=== PATIENT | female | born 1960 | race Caucasian/White ===

== ENCOUNTER 2020-12-11 08:14 | Outpatient (REF) | payer BC, SELFPAY | END 2020-12-11 08:15 | disposition home or self-care (01) | LOC: HO.HMGCLDS 08:14 | PROVIDERS: PCP Internal Medicine; Visit Provider Internal Medicine | DX: Z20.822 Contact with and (suspected) exposure to COVID-19 (principal) | CPT/HCPCS: C9803; U0003; U0005 ==

== ENCOUNTER 2023-02-25 09:00 | Inpatient (IN) | payer OTHER, SELFPAY ==
[2023-02-25] VITALS (8 sets, daily range): BP systolic 111–168; BP diastolic 54–78; PULSE 86–126; RESP 13–25; TEMP 36.6–37.7; O2SAT 84–96; BMI 24.9
--- NOTE | ~2023-02-25 | XR_ITS ---
EXAMINATION: XR CHEST CLINICAL INFORMATION: Hypoxia and shortness of breath COMPARISON: None available. TECHNIQUE: 2 views of the chest were obtained. FINDINGS: The cardiac and mediastinal contours are normal. The lungs are well-inflated. The lungs are clear. No pleural effusion or pneumothorax. Mild degenerative changes of the spine. XR/XR chest 2V IMPRESSION: Well-inflated lungs. No evidence for acute disease in the chest.
--- NOTE | ~2023-02-25 | CT_ITS ---
EXAMINATION: CT ANGIOGRAM OF THE CHEST WITH AND WITHOUT CONTRAST (CT PULMONARY ANGIOGRAM FOR PE) CLINICAL INFORMATION: Reason for Exam shortness of breath, hypoxia, positive ddimer COMPARISON: Chest x-ray from earlier the same day TECHNIQUE: Prior to contrast administration, noncontrast localization images were obtained. Subsequently, multidetector volumetric imaging was performed from the thoracic inlet to below the diaphragms following the administration of 65 mL Omnipaque 350 intravenous contrast. No contrast reaction reported Sagittal, coronal, and MIP oblique sagittal reformatted images were obtained on the CT workstation, uploaded to PACS, and reviewed. This CT examination was performed using dose optimization techniques as appropriate, variously including the following: *Automated exposure control *Adjustment of mA and/or kV according to patient size (this includes techniques or standardized protocols for targeted exams where dose is matched to indication/reason for exam; i.e. extremities or head) *Use of iterative reconstruction technique Total exam dose-length product 214 mGy-cm FINDINGS: QUALITY OF STUDY/CONTRAST BOLUS: Satisfactory. PULMONARY ARTERIES: No pulmonary emboli. THORACIC AORTA: No aneurysm. LUNG: Mild emphysema. Scattered areas of bronchial wall thickening and peribronchial nodules in the right lung. Larger peripheral or subpleural areas of atelectasis or small infiltrate in the dependent right lower lobe at the lung base. This probably represents bronchopneumonia. The left lung is clear. PLEURA: No pleural effusion or pneumothorax. MEDIASTINUM: Normal heart size. No pericardial effusion. Small mediastinal and bilateral hilar lymph nodes. No enlarged hilar or mediastinal lymphadenopathy. No evidence of septal bowing or right heart strain. CORONARY ARTERY CALCIFICATION: None visualized on this study. CHEST WALL/AXILLA: No axillary or internal mammary lymphadenopathy. OSSEOUS STRUCTURES: No acute or suspicious osseous abnormality. UPPER ABDOMEN: Unremarkable. No reflux of contrast into the hepatic veins to suggest elevated right heart pressures. CT/CT angio chest PE protocol IMPRESSION: No evidence of pulmonary embolism. Emphysema. Airways disease in the right lung and probable small bronchopneumonia in the right lower lobe VTE: negative
--- NOTE | 2023-02-25 07:00 | CA_ITS ---
Transthoracic Echocardiogram Patient (Last, First, Middle): Paula Hanley, Gender: Female Date of : 1960 Age: 62 Procedure Date: 02/25/2023 Procedure Type: Transthoracic Echocardiogram Location: ER Height: 167.64 cm Weight: 69.85 kg BSA: 1.79 m2 Heart Rate: bpm BP: 125 / 67 mmHg Software Configuration Specialist: TO Referring MD: Jose MAYORGA Symptoms: Wide complex tachycardia on monitor Study Quality: Fair/Contrast ECG Rhythm: Sinus Conclusions: - The left ventricular systolic function is normal. The calculated ejection fraction is 55% by biplane method. - No obvious valvular pathology seen on this study. Findings Procedure Information Contrast agent, definity, is being given per protocol without apparent complications. Left Ventricle Normal left ventricular cavity size. There is normal left ventricular wall thickness. The left ventricular systolic function is normal. The calculated ejection fraction is 55% by biplane method. There is no evidence of regional wall motion abnormalities. Diastolic function is normal for age. Right Ventricle Normal right ventricular cavity size and systolic function. Atria Both atria are normal in size. Aortic Valve There is a normal trileaflet aortic valve. There is no aortic valve stenosis. There is no aortic valve regurgitation. Mitral Valve There is mild anterior mitral leaflet thickening. There is mild mitral annular calcification. There is trace mitral valve regurgitation. There is no mitral valve stenosis. Pulmonic Valve The pulmonic valve is likely normal. Tricuspid Valve There is trace tricuspid valve regurgitation. Tricuspid regurgitation envelope is inadequate for calculation of right ventricular systolic pressure. Great Vessels The asc aorta is normal in size. Small plaque is seen in the sino tubular ridge. Venous The inferior vena cava is normal in size and collapses greater than 50% with inspiration. Pericardium/Pleural There is no evidence of pericardial effusion. Prior Study Comparison No prior study available for comparison. Recommendations, Care & Conclusions No obvious valvular pathology seen on this study. Measurements 2D Linear Measurements IVSd: 0.86 0.6-0.9/0.6-1.0 cm LVIDd: 4.25 3.9-5.3/4.2-5.9 cm LVIDd Index: 2.37 2.4-3.2/2.2-3.1 cm/m2 LVIDs: 2.96 2.0-3.6 cm LVPWd: 0.74 0.7-1.1 cm LA Diam: 2.80 2.7-3.8/3.0-4.0 cm LAIDs Index: 1.56 1.5-2.3 cm/m2 LV Mass: 128.48 67-162/88-224 g LV Mass Index: 71.78 43-95/49-115 g/m2 LVOT Diam: 2.00 3.0+(-)1.3 cm 2D Systolic Function EF 4C: 50.30 >55% EF 2C: 60.30 >55% EF BiP: 55.10 >55% Mitral Valve MV Pk E: 0.79 MV PK A: 0.91 MV Decel Time: 133.00 E/A: 0.90 E'Lateral: 11.20 E'Medial: 7.51 E/E' Med: 10.60 E/E' Lat: 7.10 PHT: 39.00 MVA PHT: 5.64 Decel Sed[place]wick: 5.97 Aortic Valve AoV Pk Kris: 1.55 AoV Mn Kris: 1.00 AoV VTI: 0.26 AoV Pk Grad: 10.00 Aov Mn Grad: 5.00 ARLYN Cont.VTI: 2.44 LVOT LVOT Pk Kris: 1.23 LVOT Mn Kris: 0.76 LVOT VTI: 0.20 LVOT Pk Grad: 6.00 LVOT Mn Grad: 3.00 LVOT Diam: 2.00 LVOT Area: 3.14 Diastolic Function MV Pk E: 0.79 MV Pk A: 0.91 E/A: 0.90 E'Medial: 7.51 E/E' Med: 10.60 E' Laterial: 11.20 E/E' Lat: 7.10 Right Ventricle TAPSE (mm): 19.40 TVS' Kris: 11.20 Tricuspid Valve RA Press: 3.00 Great Vessels Aorta Sinus of Valsalva: 3.11 2.0-3.5 cm Ao Asc: 3.10 2.1-3.4 cm Updated in Other Vendor System with Status of Final Jesús Avila MD electronically signed on 02/26/2023 12:34:28 PM with status of Final
--- NOTE | 2023-02-25 09:17 | ECG_ITS ---
Test Reason : chest pain Blood Pressure : / mmHG Vent. Rate : 119 BPM Atrial Rate : 119 BPM P-R Int : 138 ms QRS Dur : 082 ms QT Int : 306 ms P-R-T Axes : 075 070 067 degrees QTc Int : 430 ms Sinus tachycardia Normal EKG No previous ECGs available Referred By: Quinton Fishman Electronically Signed By:ISACC HOFFMANN
[2023-02-25 09:31] LABS: Basophils Absolute Auto 0.1 X10*3/uL (0.0-0.2); Basophils Percent Auto 0.4 % (0-2); Eosinophils Absolute Auto 0.1 X10*3/uL (0.0-0.4); Eosinophils Percent Auto 0.8 % (0-4); Hematocrit 40.2 % (37.0-47.0); Hemoglobin 13.2 g/dl (12.0-16.0); Imm Gran Abs Auto 0.06 X10*3/uL (0.00-0.03); Imm Gran Pct Auto 0.4 % (0.0-0.4); Lymphocytes Absolute Auto 1.6 X10*3/uL (1.2-4.9); MANUAL DIFF FLAG SCAN; Mean Corpuscular HGB Conc 32.8 g/dl (31.0-35.0); Mean Corpuscular Hemoglobin 29.3 pg (27.0-33.0); Mean Corpuscular Volume 89.1 fL (80.0-98.0); Mean Platelet Volume 8.5 fL (9.4-12.3); Monocytes Absolute Auto 1.8 X10*3/uL (0.1-1.2); Monocytes Percent Auto 11.3 % (2-11); Neutrophils Absolute Auto 11.9 x10*3/uL (2.0-8.3); Neutrophils Percent Auto 77.1 % (45-73); Platelet Count 349 X10*3/uL (160-400); Red Blood Count 4.51 X10*6/uL (4.20-5.50); Red Cell Distribution Width 13.9 % (11.0-16.0); SCAN SMEAR FLAG 1; White Blood Count 15.4 X10*3/uL (4.8-10.8)
[2023-02-25 09:42] LABS: D Dimer High Sensitivity 287 NG/ML
[2023-02-25 09:45] LABS: Anion Gap 14 (12-20); Blood Urea Nitrogen 10 mg/dL (9-16); Calcium 9.5 mg/dL (8.4-10.2); Carbon Dioxide 26 mmol/L (22-29); Chloride 104 mmol/L (96-108); Estimated Glomerular Filt Rate > 60; Glucose Random 122 mg/dL (60-115); Potassium 3.8 mmol/L (3.3-5.1); Sodium 140 mmol/L (135-145)
[2023-02-25 09:57] LABS: Troponin-I High Sensitivity < 2.7 ng/L (<3.5-17.0)
[2023-02-25 09:58] LABS: B Type Natriuretic Peptide 14 pg/mL (<100)
[2023-02-25 10:21] LABS: SLIDE REVIEW VERIFIED
[2023-02-25 10:55] LABS: Influenza A PCR NEGATIVE (Negative); Influenza B PCR NEGATIVE (Negative); Resp Syncy Virus RNA Qual PCR NEGATIVE (Negative); SARS COV2 PCR INHOUSE NEGATIVE (Negative)
[2023-02-25] MEDS: iohexoL 350 MG/ML 100 ML INFUS..BTL 65 ML IV (11:25)
--- NOTE | 2023-02-25 12:59 | ED_ITS ---
HPI - SOB/Dyspnea General Chief Complaint: Dyspnea Stated Complaint: has copd, in pain Time Seen by Provider: 02/25/23 09:13 Source: patient and family Mode of arrival: ambulatory Limitations: no limitations History of Present Illness HPI Narrative: Patient with increasing shortness of breath getting worse significantly over the past couple of days MD elicited complaint: shortness of breath Pertinent past history: COPD Onset (ago): week(s) Related Data Allergies Allergy/AdvReac Type Severity Reaction Status Date / Time No Known Allergies Allergy Verified 02/25/23 09:20 Review of Systems 2 Review of Systems: Yes all other systems are reviewed and are negative Neurologic: Denies Sensory deficit (Neuro) [facility] Social History Social History Advance Directives: No Physical Exam 2 Vital Signs: Vital Signs: Last Vital Signs Temp 98.9 F 02/25/23 10:29 Pulse 112 H 02/25/23 10:29 Resp 16 02/25/23 10:29 BP 138/68 02/25/23 10:29 Pulse Ox 94 02/25/23 10:29 O2 Del Method Nasal Cannula 02/25/23 10:29 O2 Flow Rate 2 02/25/23 10:29 BMI result Body Mass Index 24.9 Const: Other: thin female obviously short of breath Orientation/consciousness: oriented to person and patient oriented x3 L imitations: no limitations HEENT: Head: Yes normal to inspection Ears: external ears normal General nose exam: Normal external nose present Mouth: Normal oral and palatal mucosa present and oropharynx normal Throat: Yes posterior oropharynx normal Eyes: General: appearance normal, both eyes and all related structures Neck: Other: supple Neck: Yes normal visual inspection Chest: Chest palpation & inspection: normal inspection of the chest Resp: Other: no wheezing Auscultation: clear to auscultation bilaterally Cardio: Jugular venous distension: no JVD Rate: regular rate Rhythm: r egular rhythm Heart sounds: S1 normal heart sound present and S2 normal heart sound present GI: Inspection: Yes normal to inspection Palpation (GI): Soft to palpation, nontender and No hepatosplenomegaly present Auscultation: normal bowel sounds : General: Yes no CVA tenderness Back/Spine/Pelvis: Back: no CVA tenderness Skin: General skin exam: no rashes or lesions noted Neuro: General: oriented to person and patient oriented x3 Cranial nerves: Yes CN's II-XII intact bilaterally Motor exam (neuro): 5/5 motor strength present throughout Sensory Exam: No Sensory deficit (Neuro) Extrem: General: Yes normal to inspection Psych: Appearance: grossly normal Course Reevaluation(s) Reevaluation #1: On CT patient with RLL infiltrate and hypoxia. On repeat physical now with RLL rales. While on the monitor patient had a 17 beat wide complex tachycardia. Time: 13:11 Reevaluation #2: I spent 40 minutes of critical care, with interventions, assessments, speaking to patient, consultants, and family. Time: 13:18 Medications Administered Discontinued Medications Generic Name Dose Route Start Last Admin Trade Name Freq PRN Reason Stop Dose Admin Iohexol 65 ml 02/25/23 11:24 02/25/23 11:25 Iohexol 350 Mg/Ml 100 Ml Infus..Btl IV 02/25/23 11:25 65 ml ONCE ONE Administration Medical Decision Making Differential Diagnosis Differential Diagnoses: The differential diagnosis associated with the presentation includes (Pulmonary embolus, COPD exacerbation, pneumonia, covid, flu, rsv were all considered) Admission/Observation Consideration of admission/observation: Escalation of care including admission/observation considered (upon arrival patient was hypoxic and needed admission) Consult Healthcare Provider Management of the patient was discussed with: Hospitalist Lab Data MDM Lab Attestation statement: I reviewed the patient's lab results. (positive ddimer, elevated WBC all considered) 02/25/23 09:25 02/25/23 09:25 Labs: Lab Results 02/25/23 02/25/23 Range/Units 09:25 09:59 WBC 15.4 H (4.8-10.8) X10*3/uL RBC 4.51 (4.20-5.50) X10*6/uL Hgb 13.2 (12.0-16.0) g/dl Hct 40.2 (37.0-47.0) % MCV 89.1 (80.0-98.0) fL MCH 29.3 (27.0-33.0) pg MCHC 32.8 (31.0-35.0) g/dl RDW 13.9 (11.0-16.0) % Plt Count 349 (160-400) X10*3/uL MPV 8.5 L (9.4-12.3) fL Immature Gran % (Auto) 0.4 (0.0-0.4) % Neut % (Auto) 77.1 H (45-73) % Lymph % (Auto) 10.0 L (20-40) % [place] % (Auto) 11.3 H (2-11) % Eos % (Auto) 0.8 (0-4) % Baso % (Auto) 0.4 (0-2) % Lymph # (Auto) 1.6 (1.2-4.9) X10*3/uL [place] # (Auto) 1.8 H (0.1-1.2) X10*3/uL Eos # (Auto) 0.1 (0.0-0.4) X10*3/uL Baso # (Auto) 0.1 (0.0-0.2) X10*3/uL Abs Immat Gran (auto) 0.06 H (0.00-0.03) X10*3/uL Absolute Neuts (auto) 11.9 H (2.0-8.3) x10*3/uL Absolute Nucleated RBC 0.000 (0.0-0.012) X10*3/uL Nucleated RBC % (auto) 0.0 (0.0-0.2) /100WBC Smear Tech's Comments VERIFIED D-Dimer High Sensitivty 287 NG/ML Sodium 140 (135-145) mmol/L Potassium 3.8 (3.3-5.1) mmol/L Chloride 104 (96-108) mmol/L Carbon Dioxide 26 (22-29) mmol/L Anion Gap 14 (12-20) BUN 10 (9-16) mg/dL Creatinine 0.70 (0.5-1.4) mg/dL Estim Creat Clear Calc 79.0 Estimated GFR > 60 Random Glucose 122 H (60-115) mg/dL Calcium 9.5 (8.4-10.2) mg/dL Troponin I High Sens < 2.7 (<3.5-17.0) ng/L B-Natriuretic Peptide 14 (<100) pg/mL Influenza Type A (PCR) NEGATIVE (Negative) Influenza Type B (PCR) NEGATIVE (Negative) RSV RNA Qual (PCR) NEGATIVE (Negative) SARS-CoV-2 RNA (RT-PCR) NEGATIVE (Negative) Independent Interpretation I performed an independent interpretation of an: EKG (sinus tachycardia 120, no st or twave changes), Plain X-Ray (no infiltrate) and CT Scan (right lower lobe infiltrate) Radiology Impression Discussion of test interpretation with radiology: I have reviewed the radiologist's reading. Independent Historian Clinical information obtained from an independent historian. History obtained from or confirmed by: Spouse Chronic Conditions Patient?s care impacted by: Other (copd) Discharge Plan Discharge Clinical Impression: Community acquired pneumonia, COPD (chronic obstructive pulmonary disease) Patient Disposition: Admitted As Inpatient
[2023-02-25] MEDS: cefTRIAXone sodium 1 GM in 0.9 % Sodium Chloride 50 ML IV (13:32)
--- NOTE | 2023-02-25 13:32 | PM.IMHP ---
History of Present Illness Date of Service: 02/25/23 Attending physician on admission: Bhavesh Vásquez Chief Complaint: SOB Pt is a 62-year-old female with a PMH significant for?COPD not on home O2, anxiety/depression insomnia, and hx of uterine cancer s/p hysterectomy who presents to the ED with?fatigue, shortness of breath, and productive cough x4 weeks. Patient states that symptoms began approximately 1 month ago became significantly worse the past couple days. Patient has had increasing shortness of breath and difficulty breathing with cough occasionally productive of green-colored sputum. Also has experienced chest tightness associated with cough and breathing. Presents today due to worsening symptoms: says she's been pushing and pushing and I just can't push any more . She is a former smoker who quit 45 years ago, drinks socially, and denies any illicit substance use. Denies any significant cardiac history, and follows up regularly with her PCP. In the ED pt had elevated temperature up to 99.9, tachycardia up to 126, tachypnea up to 24, hypertensive up to 168/78, and satting at 84% on RA. Labs were significant for leukocytosis 15.4 and D-dimer mildly elevated at 287, otherwise largely unremarkable. Stable H&H. Electrolytes WNL. Creatinine WNL. Troponin negative. BNP WNL 14. Tested negative for influenza type a and B, COVID, and RSV. CXR showed no evidence for acute disease in the chest. CTA found no evidence for pulmonary embolism, but did show emphysema and airways disease and right lung and probable small bronchopneumonia in the right lower lobe. EKG demonstrated sinus tachycardia of 119 without evidence of significant ST elevations or depressions. Patient did arrive with rhythm strip from EMS of polymorphic wide complex tachycardia of 17 beats. Pt was treated with ceftriaxone and azithromycin. Pt will be admitted to the hospital for treatment further evaluation of acute hypoxic respiratory failure in the setting of community-acquired pneumonia. Review of Systems Review of Systems: SOB, difficulty breathing Fatigue Productive cough Chest tightness Denies chest pain/pressure No headache Denies fever, chills, nausea, vomiting No abdominal pain [facility] Medical History (Updated 02/25/23 @ 14:46 by MUKESH Cheng) Anxiety and depression Uterine cancer Surgical History (Updated 02/25/23 @ 14:43 by MUKESH Cheng) Status post hysterectomy Social History Advance Directives: No Meds Allergies Allergy/AdvReac Type Severity Reaction Status Date / Time No Known Allergies Allergy Verified 02/25/23 09:20 Active Medications: Current Medications Azithromycin 500 mg/ Sodium (Chloride) 250 mls @ 125 mls/hr IV ONCE ONE Stop: 02/25/23 14:55 Home Medications Medication Instructions Recorded Confirmed Last Taken Type duloxetine 60 mg capsule,delayed 60 mg PO DAILY 02/25/23 02/25/23 Unknown History release tiotropium 2.5 mcg-olodaterol 2.5 2 puff inhalation DAILY 02/25/23 02/25/23 Unknown History mcg/actuation mist for inhalation (Stiolto Respimat) trazodone 50 mg tablet 100 - 150 mg PO BEDTIME 02/25/23 02/25/23 Unknown History Physical Exam Vital Signs and Narrative: Vital Signs: Last Vital Signs Temp 98.9 F 02/25/23 10:29 Pulse 112 H 02/25/23 10:29 Resp 16 02/25/23 10:29 BP 138/68 02/25/23 10:29 Pulse Ox 94 02/25/23 10:29 O2 Del Method Nasal Cannula 02/25/23 10:29 O2 Flow Rate 2 02/25/23 10:29 BMI result Body Mass Index 24.9 Constitutional: Alert, in no acute distress. Mental Status: Oriented to person, place and time. Eyes: Pupils are equal, round, and reactive to light. Ear, Nose, and Throat: Oropharynx clear, mucous membranes moist. Ears and nose without deformities. Trachea midline. Respiratory: Mild coarse breath sounds bilaterally. Capable of speaking in complete sentences. Cardiovascular: S1, S2, tachy. No murmurs, rubs, or gallops. Gastrointestinal: Abdomen soft, non-tender, non-distended. Normal bowel sounds. Neurologic: Cranial nerves II-XII are grossly intact bilaterally. No focal neurological deficits. Moves all extremities spontaneously. Skin: Warm, dry. Musculoskeletal: No cyanosis or clubbing. Extremities: No edema. Psychiatric: Normal mood and affect. Results Labs 02/25/23 09:25 02/25/23 09:25 Labs: Laboratory Results - last 24 hr 02/25/23 02/25/23 09:25 09:59 MCV 89.1 MCH 29.3 MCHC 32.8 RDW 13.9 Plt Count 349 MPV 8.5 L Immature Gran % (Auto) 0.4 Neut % (Auto) 77.1 H Lymph % (Auto) 10.0 L [place] % (Auto) 11.3 H Eos % (Auto) 0.8 Baso % (Auto) 0.4 Lymph # (Auto) 1.6 [place] # (Auto) 1.8 H Eos # (Auto) 0.1 Baso # (Auto) 0.1 Abs Immat Gran (auto) 0.06 H Absolute Neuts (auto) 11.9 H Absolute Nucleated RBC 0.000 Nucleated RBC % (auto) 0.0 Smear Tech's Comments VERIFIED D-Dimer High Sensitivty 287 Anion Gap 14 Estim Creat Clear Calc 79.0 Estimated GFR > 60 Random Glucose 122 H Calcium 9.5 B-Natriuretic Peptide 14 Influenza Type A (PCR) NEGATIVE Influenza Type B (PCR) NEGATIVE RSV RNA Qual (PCR) NEGATIVE SARS-CoV-2 RNA (RT-PCR) NEGATIVE Imaging Radiologist's Impressions: Impressions Chest X-Ray 02/25/23 09:40 IMPRESSION: Well-inflated lungs. No evidence for acute disease in the chest. Chest CTA 02/25/23 11:26 IMPRESSION: No evidence of pulmonary embolism. Emphysema. Airways disease in the right lung and probable small bronchopneumonia in the right lower lobe VTE: negative Assessment and Plan (1) Community acquired pneumonia: Status: Acute (2) Acute hypoxic respiratory failure: Status: Acute Plan Pt is a 62-year-old female with a PMH significant for?COPD not on home O2, anxiety/depression insomnia, and hx of uterine cancer s/p hysterectomy who presents to the ED with?fatigue, shortness of breath, and productive cough x4 weeks. Pt will be admitted to the hospital for treatment further evaluation of acute hypoxic respiratory failure in the setting of community-acquired pneumonia. Acute hypoxic respiratory failure in the setting of pneumonia Patient satting as low as 84% on RA, not on home O2 CTA with evidence of bronchopneumonia in right lower lobe Patient meets sepsis criteria: Tachycardia, tachypnea, leukocytosis Will treat with ceftriaxone and azithromycin, started 02/25/2023 Will give IVF Will check lactic acid Continue home inhaler Will give DuoNebs Titrate supplemental O2>92, wean as tolerated Wide complex tachycardia While in ED monitor picked up polymorphic wide complex tachycardia of 17 beats Unclear etiology: Patient denies any cardiovascular history Patient asymptomatic, troponin negative Will check magnesium Will get echocardiogram Monitor on telemetry Anxiety and depression Continue home meds Full Code Attending:?Dr. Vásquez DVT Prophylaxis: Lovenox Pt will require a hospitalization of at least two nights for treatment of?acute hypoxic respiratory failure in the setting of pneumonia. Patient be treated with supplemental oxygen, IV antibiotics, and close monitoring. Quality Stroke Does the patient have a stroke diagnosis?: No VTE Prior VTE?: No VTE Risk Level:: Medical - moderate - high VTE Device Contraindication: Treatment Not Indicated VTE Drug Contraindication: N/A - Med Ordered
[2023-02-25] MEDS: Azithromycin 500 MG in 0.9 % Sodium Chloride 250 ML 125 MG IV (13:58)
--- NOTE | 2023-02-25 14:00 | PHA.MEDREC ---
Pharmacy Consult ? Medication Reconciliation Pharmacy has completed the medication reconciliation. Patient has medication with her. Britany Aparicio, Catracho[facility]
[2023-02-25] MEDS: Enoxaparin Sodium 40 MG/0.4 ML SYRINGE SUBCUT (14:42)
[2023-02-25] MEDS: Potassium Chloride Packet 20 MEQ PACKET PO (14:42)
[2023-02-25 14:43] LABS: Magnesium 1.9 mg/dL (1.6-2.6)
[2023-02-25] MEDS: 0.9 % Sodium Chloride 1,000 ML 999 ML IV (14:43)
[2023-02-25] MEDS: 0.9 % Sodium Chloride Flush 3 ML SYRINGE IVFLUSH ×2 (14:43→23:28)
[2023-02-25] MEDS: Acetaminophen 325 MG TABLET 650 MG PO (15:10)
--- NOTE | 2023-02-25 15:11 | PC.NURSE ---
PT resting in bed, respirations even and unlabored , in no apparent distress. Medicated with 650mg of tylenol for headache 06/28. and Ultrasound @ bedside. Pending admission.
[2023-02-25 15:29] LABS: Lactic Acid 1.4 mmol/L (0.5-2.0)
--- NOTE | 2023-02-25 19:00 | PC.NURSE ---
This keno writer / runner assumed care of this Pt at 1900. Pt A&Ox3, denies any pain. Pt reports cough and SOB with exertion. Pt on 2 L via NC, SpO2 96%, RR 22, lung sounds slightly diminished. Pt ambulated to BR independently with steady gait.
[2023-02-25] MEDS: Albuterol/Iprat 2.5/0.5MG 3 ML AMPUL.NEB INHALE (19:26)
[2023-02-25] MEDS: traZODone HCL 50 MG TABLET 100 MG PO (20:39)
[2023-02-26] VITALS (16 sets, daily range): BP systolic 116–140; BP diastolic 57–70; PULSE 86–122; RESP 17–22; TEMP 36.1–37.1; O2SAT 89–98; BMI 24.2
--- NOTE | 2023-02-26 | ECG_ITS ---
Test Reason : CHEST PAIN Blood Pressure : / mmHG Vent. Rate : 121 BPM Atrial Rate : 121 BPM P-R Int : 116 ms QRS Dur : 094 ms QT Int : 316 ms P-R-T Axes : 063 057 039 degrees QTc Int : 448 ms Sinus tachycardia Otherwise normal ECG No previous ECGs available Referred By: Arabella Marx Electronically Signed By:ISACC HOFFMANN
[2023-02-26] MEDS: Benzonatate 100 MG CAPSULE PO (01:24)
[2023-02-26] MEDS: Acetaminophen 325 MG TABLET 650 MG PO ×3 (01:24→20:22)
--- NOTE | 2023-02-26 03:00 | PC.NURSE ---
Pt appears to be sleeping, SpO2 88% on RA, Pt awakens with verbal stimuli, placed back on 2 L via NC.
[2023-02-26 06:32] LABS: Hemoglobin 11.5 g/dl (12.0-16.0); Mean Corpuscular HGB Conc 31.9 g/dl (31.0-35.0); Mean Corpuscular Hemoglobin 29.3 pg (27.0-33.0); Mean Corpuscular Volume 91.6 fL (80.0-98.0); Mean Platelet Volume 8.9 fL (9.4-12.3); Platelet Count 322 X10*3/uL (160-400); Red Blood Count 3.93 X10*6/uL (4.20-5.50); Red Cell Distribution Width 13.7 % (11.0-16.0); White Blood Count 10.2 X10*3/uL (4.8-10.8)
[2023-02-26 06:42] LABS: Anion Gap 12 (12-20); Blood Urea Nitrogen 9 mg/dL (9-16); Carbon Dioxide 26 mmol/L (22-29); Chloride 108 mmol/L (96-108); Creatinine Clr Calc Pharmacy 95.3; Estimated Glomerular Filt Rate > 60; Glucose Random 96 mg/dL (60-115); Potassium 4.2 mmol/L (3.3-5.1); Sodium 142 mmol/L (135-145)
[2023-02-26] MEDS: 0.9 % Sodium Chloride Flush 3 ML SYRINGE IVFLUSH ×5 (08:04→20:22)
[2023-02-26 08:10] LABS: Magnesium 2.1 mg/dL (1.6-2.6)
[2023-02-26] MEDS: Doxycycline Hyclate 100 MG in 0.9 % Sodium Chloride 250 ML 166.67 MG IV ×2 (08:18→20:22)
[2023-02-26] MEDS: methylPREDNISolone Sod Succ 40 MG/ML VIAL IVPUSH (08:18)
[2023-02-26] MEDS: Albuterol/Iprat 2.5/0.5MG 3 ML AMPUL.NEB INHALE ×3 (08:27→15:19)
[2023-02-26 08:30] LABS: Procalcitonin 0.08 ng/mL
--- NOTE | 2023-02-26 08:32 | PC.NURSE ---
patient resting quietly in bed, patient states she has a headache, utilized prn tylenol per MAY. respirations equal and unlabored, skin pwd.
--- NOTE | 2023-02-26 09:30 | PC.NURSE ---
this RN resumed care of pt at this time. vss and up to date aside from being slightly tachypneic. nsr on the personnel monitor. pt verbalizing 8/10 headache despite medication administration. pt verbalizes no effectiveness. pt c/o pain at IV insertion site placed by previous RN - no swelling/redness/infiltration etc. noted. new 20gIV placed in the right AC - abx continues to administer at this time. wheezing noted throughout upon auscultation. pt verbalizes no sob/wob at this time. respirations even and unlabored. bedside. call quintanilla placed within reach.
[2023-02-26] MEDS: DULoxetine HCl 60 MG CAPSULE.DR PO (09:54)
--- NOTE | 2023-02-26 09:55 | PC.NURSE ---
pt speaking w/ admitting provider at this time. medication administered per provider order. bedside. call quintanilla placed within reach.
--- NOTE | 2023-02-26 11:58 | PM.CNCAR ---
History of Present Illness History of Present Illness Date of Service: 02/26/23 Chief complaint: Community acquired pneumonia; acute hypoxic Narrative: This is a cardiology consultation regarding an episode of NSVT seen on telemetry. Patient has COPD on home oxygen, and basically she is here for increasing shortness of breath. Admission diagnosis hypoxic respiratory failure in setting of pneumonia. From the cardiac standpoint, telemetry in the ER had shown wide complex tachycardia for about 17 beats and hence we have been asked to see her. Patient herself denies any history of coronary disease myocardial infarction or cardiomyopathy or in fact any other cardiac issues. She does get short of breath with activity which she relates to COPD. Whenever she is feeling short of breath he also feels chest pain and that could be pleuritic pain. Currently, she is not having any cardiac symptoms. Review of Systems Review of Systems: Yes all other systems are reviewed and are negative Constitutional: Constitutional: Reports as per HPI and Reports no additional constitutional complaints Eyes: Eyes: Reports as per HPI and Denies no additional eye complaints ENT: Denies system reviewed and no additional complaints, except as documented and Reports as per HPI Cardiovascular: Cardiovascular: Reports as per HPI, Reports no additional cardiovascular complaints, Denies acrocyanosis, Denies cool extremities, Denies chest pain, Denies leg edema, Denies lightheadedness, Denies palpitations and Reports dyspnea Respiratory: Respiratory: Reports as per HPI, Denies no additional respiratory complaints and Reports dyspnea Gastrointestinal: Gastrointestinal: Reports as per HPI and Denies no additional gastrointestinal complaints Genitourinary: Genitourinary: Reports as per HPI Musculoskeletal: Musculoskeletal: Reports no additional musculoskeletal complaints and Reports as per HPI Integumentary/Breasts: Skin/Breast: Reports system reviewed and no additional complaints, except as docu Neurologic: Reports system reviewed and no additional complaints, except as documented and Reports as per HPI Psychiatric: Psychiatric: Reports no additional psychiatric complaints and Reports as per HPI Endocrine: Endocrine: Reports no additional endocrine complaints, Reports as per HPI and Denies palpitations Hematologic/Lymphatic: Hematologic/Lymphatic: Reports no additional hematologic/lymphatic complaints and Reports as per HPI Allergic/Immunologic: Allergic/Immunologic: Reports no additional allergic/immunologic complaints and Reports as per HPI [facility] Past Medical History Medical History (Updated 02/26/23 @ 12:06 by Jesús Avila MD) Anxiety and depression Uterine cancer Family History Pertinent family history: No pertinent family history Surgical History Surgical History (Updated 02/25/23 @ 14:43 by MUKESH Cheng) Status post hysterectomy Social History Social History (Updated 02/26/23 @ 12:05 by Jesús Avila MD) Patient Tobacco Use Status: Former Tobacco user Meds Allergies Allergy/AdvReac Type Severity Reaction Status Date / Time No Known Allergies Allergy Verified 02/25/23 09:20 Active Medications: Current Medications Acetaminophen (Acetaminophen 325 Mg Tablet) 650 mg PO Q6H PRN PRN Reason: Pain, Mild (Pain Scale 1-3) Last Admin: 02/26/23 08:02 Dose: 650 mg Albuterol/Ipratropium (Albuterol/Iprat 2.5/0.5mg 3 Ml Ampul.Neb) 3 ml INHALE RQ4H WHILE AWAKE [facility] Last Admin: 02/26/23 11:42 Dose: 3 ml Benzonatate (Benzonatate 100 Mg Capsule) 100 mg PO TID PRN PRN Reason: Cough Last Admin: 02/26/23 01:24 Dose: 100 mg Docusate Sodium (Docusate Sodium 100 Mg Capsule) 100 mg PO DAILY PRN PRN Reason: Constipation Duloxetine HCl (Duloxetine Hcl 60 Mg Capsule.Dr) 60 mg PO DAILY [facility] Last Admin: 02/26/23 09:54 Dose: 60 mg Enoxaparin Sodium (Enoxaparin Sodium 40 Mg/0.4 Ml Syringe) 40 mg SUBCUT Q24H [facility] Last Admin: 02/25/23 14:42 Dose: 40 mg Ceftriaxone Sodium 1 gm/ (Sodium Chloride) 50 mls @ 100 mls/hr IV Q24H [facility] Doxycycline Hyclate 100 mg/ (Sodium Chloride) 250 mls @ 166.67 mls/hr IV Q12H [facility] Last Infusion: 02/26/23 09:48 Dose: Infused Methylprednisolone Sodium Succinate (Methylprednisolone Sod Succ 40 Mg/Ml Vial) 40 mg IVPUSH Q24H [facility] Last Admin: 02/26/23 08:18 Dose: 40 mg Pt Own (Tiotropium- Olodaterol [Stiolto Respimat] 2.5-2.5 Mcg/Actuation M 2 puff INHALE RDAILY [facility] Last Admin: 02/26/23 09:48 Dose: Not Given Sodium Chloride (0.9 % Sodium Chloride Flush 3 Ml Syringe) 3 ml IVFLUSH QSTXFT [facility] Last Admin: 02/26/23 08:04 Dose: 3 ml Sodium Chloride (0.9 % Sodium Chloride Flush 3 Ml Syringe) 3 ml IVFLUSH [facility] Last Admin: 02/26/23 08:25 Dose: 3 ml Trazodone HCl (Trazodone Hcl 50 Mg Tablet) 100 mg PO BEDTIME [facility] Last Admin: 02/25/23 20:39 Dose: 100 mg Home Medications Medication Instructions Recorded Confirmed Last Taken Type duloxetine 60 mg capsule,delayed 60 mg PO DAILY 02/25/23 02/25/23 Unknown History release tiotropium 2.5 mcg-olodaterol 2.5 2 puff inhalation DAILY 02/25/23 02/25/23 Unknown History mcg/actuation mist for inhalation (Stiolto Respimat) trazodone 50 mg tablet 100 - 150 mg PO BEDTIME 02/25/23 02/25/23 Unknown History Physical Exam Vital Signs: Vital Signs: Last Vital Signs Temp 98.7 F 02/26/23 07:58 Pulse 96 02/26/23 11:43 Resp 17 02/26/23 11:43 BP 139/68 02/26/23 09:20 Pulse Ox 95 02/26/23 09:20 O2 Del Method Nasal Cannula 02/26/23 09:20 O2 Flow Rate 1.5 02/26/23 09:20 BMI result Body Mass Index 24.9 Const: General: comfortable and no acute distress Orientation/consciousness: patient oriented x3 HEENT: Other: Unremarkable Head: Yes normal to inspection Neck: Neck: Yes normal visual inspection Chest: Chest palpation & inspection: normal inspection of the chest Resp: Auscultation: clear to auscultation bilaterally Cardio: Palpation: normal PMI Heart sounds: S1 normal heart sound present, S2 normal heart sound present, no gallops, no murmurs and no rubs GI: Palpation (GI): Soft to palpation Back/Spine/Pelvis: Other: unremarkable Skin: General skin exam: no rashes or lesions noted Neuro: General: patient oriented x3 Extrem: General: Yes normal to inspection Psych: Mental Status: mental status grossly normal Objective Labs and Meds 02/26/23 06:08 02/26/23 06:08 Lab results: Laboratory Results - last 24 hr 12/11/1002/25/23 02/26/23 09:25 Unknown 06:08 WBC 10.2 RBC 3.93 L Hgb 11.5 L Hct 36.0 L MCV 91.6 MCH 29.3 MCHC 31.9 RDW 13.7 Plt Count 322 MPV 8.9 L Absolute Nucleated RBC 0.000 Nucleated RBC % (auto) 0.0 Sodium 142 Potassium 4.2 Chloride 108 Carbon Dioxide 26 Anion Gap 12 BUN 9 Creatinine 0.58 Estim Creat Clear Calc 95.3 Estimated GFR > 60 Random Glucose 96 Lactic Acid 1.4 Calcium 9.0 Magnesium 1.9 2.1 Procalcitonin 0.08 ECG Interpretation: EKG with sinus tachycardia at 119/Min; no significant ST-T changes and otherwise unremarkable. Normal GA and corrected QT. Telemetry episode reviewed. Monomorphic VT foreign 17 beats. Nothing recurrent. Imaging Radiologist's impression: Impressions Chest CTA 02/25/23 11:26 IMPRESSION: No evidence of pulmonary embolism. Emphysema. Airways disease in the right lung and probable small bronchopneumonia in the right lower lobe VTE: negative Assessment and Plan (1) NSVT (nonsustained ventricular tachycardia): Status: Acute (2) Acute hypoxic respiratory failure: Status: Acute (3) COPD (chronic obstructive pulmonary disease): Status: Acute (4) Community acquired pneumonia: Status: Acute Plan Troponins within normal limits. Cardiac BNP is also normal. CTA reported to have no pulmonary embolism. Emphysema. Airway disease and right lung and probable small bronchopneumonia and right lower lobe. No coronary artery calcification noted. Overall, single episode of nonsustained VT, monomorphic. This could be outflow tract related. Generally does not reflect ischemia. No specific management, unless recurrent. Will review echocardiogram that has been completed. Discussed with family member at bedside. Procedures Date of Service Date of Service: 02/26/23
--- NOTE | 2023-02-26 12:08 | PC.NURSE ---
vss and up to date at this time. nsr on the steward dishwasher. pt resting at 89% on 1.5L via NC. bumped pt's oxygen up to 2L via NC at this time - pt now resting between 91%-92%. no sob/wob noted. able to speak in full/clear sentences w/o difficulty. respirations remain even and unlabored. pt awaiting bed assignment at this time. family bedside. call quintanilla placed within reach.
--- NOTE | 2023-02-26 12:11 | P.PNIM_ITS ---
Subjective Subjective Date of Service: 02/26/23 Interval History: dyspnea/cough improving had palpitations during episode of NSVT yesterday at 1pm and has been having them at home as well no fever Review of Systems Review of Systems: Yes all other systems are reviewed and are negative Physical Exam 2 Vital Signs: Vital Signs: Last Vital Signs Temp 98.7 F 02/26/23 07:58 Pulse 96 02/26/23 12:01 Resp 22 H 02/26/23 12:01 BP 125/64 02/26/23 12:01 Pulse Ox 92 02/26/23 12:01 O2 Del Method Nasal Cannula 02/26/23 12:01 O2 Flow Rate 2 02/26/23 12:01 BMI result Body Mass Index 24.9 Gen: in no acute distress HEENT: sclera anicteric, moist mucus membranes Neck: supple Lungs: diminished Heart: regular rate and rhythm, no murmurs Abd: soft, non-tender, non-distended Ext: no edema Skin: warm/well-perfused Neuro: alert and oriented x3, no focal findings Psych: appropriate affect Objective Data Active Medications Acetaminophen (Acetaminophen 325 Mg Tablet) 650 mg PO Q6H PRN PRN Reason: Pain, Mild (Pain Scale 1-3) Last Admin: 02/26/23 08:02 Dose: 650 mg Documented By: JA Albuterol/Ipratropium (Albuterol/Iprat 2.5/0.5mg 3 Ml Ampul.Neb) 3 ml INHALE RQ4H WHILE AWAKE [facility] Last Admin: 02/26/23 11:42 Dose: 3 ml Documented By: BRERobertNE Benzonatate (Benzonatate 100 Mg Capsule) 100 mg PO TID PRN PRN Reason: Cough Last Admin: 02/26/23 01:24 Dose: 100 mg Documented By: JENI Docusate Sodium (Docusate Sodium 100 Mg Capsule) 100 mg PO DAILY PRN PRN Reason: Constipation Duloxetine HCl (Duloxetine Hcl 60 Mg Capsule.) 60 mg PO DAILY [facility] Last Admin: 02/26/23 09:54 Dose: 60 mg Documented By: DEWEY Enoxaparin Sodium (Enoxaparin Sodium 40 Mg/0.4 Ml Syringe) 40 mg SUBCUT Q24H [facility] Last Admin: 02/25/23 14:42 Dose: 40 mg Documented By: JOSE ANGELOPEMagaly Ceftriaxone Sodium 1 gm/ (Sodium Chloride) 50 mls @ 100 mls/hr IV Q24H [facility] Doxycycline Hyclate 100 mg/ (Sodium Chloride) 250 mls @ 166.67 mls/hr IV Q12H [facility] Last Infusion: 02/26/23 09:48 Dose: Infused Documented By: DEWEY Methylprednisolone Sodium Succinate (Methylprednisolone Sod Succ 40 Mg/Ml Vial) 40 mg IVPUSH Q24H [facility] Last Admin: 02/26/23 08:18 Dose: 40 mg Documented By: JA Pt Own (Tiotropium- Olodaterol [Stiolto Respimat] 2.5-2.5 Mcg/Actuation M 2 puff INHALE RDAILY [facility] Last Admin: 02/26/23 09:48 Dose: Not Given Documented By: LUIS ALBERTO Non-Admin Reason: Med Not Available Sodium Chloride (0.9 % Sodium Chloride Flush 3 Ml Syringe) 3 ml IVFLUSH QSHIFT [facility] Last Admin: 02/26/23 08:04 Dose: 3 ml Documented By: JA Sodium Chloride (0.9 % Sodium Chloride Flush 3 Ml Syringe) 3 ml IVFLUSH QSHIFT [facility] Last Admin: 02/26/23 08:25 Dose: 3 ml Documented By: JA Trazodone HCl (Trazodone Hcl 50 Mg Tablet) 100 mg PO BEDTIME [facility] Last Admin: 02/25/23 20:39 Dose: 100 mg Documented By: LUISITO Labs 02/26/23 06:08 02/26/23 06:08 Labs: Laboratory Results - last 24 hr 02/25/23 02/25/23 02/26/23 09:25 Unknown 06:08 MCV 91.6 MCH 29.3 MCHC 31.9 RDW 13.7 Plt Count 322 MPV 8.9 L Absolute Nucleated RBC 0.000 Nucleated RBC % (auto) 0.0 Anion Gap 12 Estim Creat Clear Calc 95.3 Estimated GFR > 60 Random Glucose 96 Lactic Acid 1.4 Calcium 9.0 Magnesium 1.9 2.1 Procalcitonin 0.08 Assessment and Plan (1) NSVT (nonsustained ventricular tachycardia): Status: Acute (2) Acute hypoxic respiratory failure: Status: Acute (3) COPD (chronic obstructive pulmonary disease): Status: Acute Assessment and Plan: d2 62yo F with COPD + mood disorder, hx uterine CA s/p hysterectomy presenting with 4 wk of worsening fatigue, dyspnea + cough, found to be hypoxic with PNA sepsis with acute hypoxic resp failure due to COPD exacerbation due to PNA - start methylprednisolone 02/26/23- - ceftriaxone 02/25-, change azithromycin to doxycycline 02/26- - continue nebs - wean O2 as tolerated NSVT - Cardiology consult, TTE pending mood disorder - continue duloxetine + trazodone VTE ppx - LMWH dispo - eventual return home In my clinical judgment, the patient requires continued inpatient hospitalization for the following reasons: hypoxia, IV ABX, telemetry Total time managing care of this patient today: 35 minutes. Quality Stroke Does the patient have a stroke diagnosis?: No VTE Prior VTE?: No VTE Risk Level:: Medical - moderate - high VTE Device Contraindication: Treatment Not Indicated VTE Drug Contraindication: N/A - Med Ordered
[2023-02-26] MEDS: cefTRIAXone sodium 1 GM in 0.9 % Sodium Chloride 50 ML IV (13:24)
--- NOTE | 2023-02-26 13:24 | PC.NURSE ---
medication administered per provider order.
--- NOTE | 2023-02-26 14:04 | MHC.CM.PN ---
IMM 02/26. Pt lives at home with her and adult son. 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 Returning home is the goal, pts will transport her home. HCP completed with pt, now on file. PCP: Dr. Román Doe
--- NOTE | 2023-02-26 14:08 | MHC.CM.PN ---
Pt lives at home with her and adult son. 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 Returning home is the goal, pts will transport her home. HCP completed with pt, now on file. PCP: Dr. Román Doe
--- NOTE | 2023-02-26 14:56 | PC.NURSE ---
admission worksheet completed - transport notified that pt is ready to be transported upstairs at this time.
[2023-02-26] MEDS: Enoxaparin Sodium 40 MG/0.4 ML SYRINGE SUBCUT (15:04)
--- NOTE | 2023-02-26 15:06 | PC.NURSE ---
medication administered per provider order. pt waiting to be transported upstairs at this time. pt and pt's aware of room number.
--- NOTE | 2023-02-26 15:41 | PC.NURSE ---
pt being transported upstairs at this time.
--- NOTE | 2023-02-26 15:46 | HE.PHANOTE ---
RE PT OWN NAYELY PENDLETON CALLED FROM RESPIRATORY TO SAY THE PT WAS MOVED FROM ED TO 4TH FLOOR. STATES SHE WILL BRING THE INHALER TO THE PT BIN ON 4TH FLOOR.
[2023-02-26] MEDS: Nitroglycerin 0.4 MG TAB.SUBL SUBLINGUAL (17:12)
--- NOTE | 2023-02-26 18:01 | PM.EVENT ---
Event Note Date of Service: 02/26/23 Event Note: c/o 8/10 chest discomfort- pressure-type. Tachycardic in the 120s. Lung sounds diminished but not wheezing. Given NTG 0.4 mg SL with relief of pain, currently 04/30. EKG sinus tachycardia without ischemic changes. Will check Tn-I x2. TTE: Normal left ventricular cavity size. There is normal left ventricular wall thickness. The left ventricular systolic function is normal. The calculated ejection fraction is 55% by biplane method. There is no evidence of regional wall motion abnormalities. Diastolic function is normal for age. Time Spent With Patient Time: Total time managing care of this patient today ____ minutes.
[2023-02-26 18:23] LABS: Troponin-I High Sensitivity < 2.7 ng/L (<3.5-17.0)
[2023-02-26] MEDS: levalbuterol HCL 1.25 MG/3 ML VIAL.NEB INHALE (19:18)
[2023-02-26] MEDS: traZODone HCL 50 MG TABLET 100 MG PO (20:21)
[2023-02-26 21:06] LABS: Troponin-I High Sensitivity < 2.7 ng/L (<3.5-17.0)
[2023-02-27] VITALS (11 sets, daily range): BP systolic 128–144; BP diastolic 60–77; PULSE 91–112; RESP 16–20; TEMP 36.3–36.9; O2SAT 86–98
[2023-02-27 06:58] LABS: Hemoglobin 11.1 g/dl (12.0-16.0); Mean Corpuscular HGB Conc 32.6 g/dl (31.0-35.0); Mean Corpuscular Hemoglobin 29.9 pg (27.0-33.0); Mean Corpuscular Volume 91.6 fL (80.0-98.0); Platelet Count 357 X10*3/uL (160-400); Red Blood Count 3.71 X10*6/uL (4.20-5.50); Red Cell Distribution Width 13.7 % (11.0-16.0); White Blood Count 9.4 X10*3/uL (4.8-10.8)
[2023-02-27] MEDS: Benzonatate 100 MG CAPSULE PO ×2 (07:13→14:19)
[2023-02-27 07:16] LABS: Anion Gap 15 (12-20); Blood Urea Nitrogen 11 mg/dL (9-16); Calcium 9.3 mg/dL (8.4-10.2); Carbon Dioxide 28 mmol/L (22-29); Chloride 105 mmol/L (96-108); Creatinine Clr Calc Pharmacy 92.1; Estimated Glomerular Filt Rate > 60; Glucose Random 94 mg/dL (60-115); Magnesium 2.1 mg/dL (1.6-2.6); Potassium 3.9 mmol/L (3.3-5.1); Sodium 144 mmol/L (135-145)
[2023-02-27] MEDS: DULoxetine HCl 60 MG CAPSULE.DR PO (07:55)
[2023-02-27] MEDS: methylPREDNISolone Sod Succ 40 MG/ML VIAL IVPUSH (07:55)
[2023-02-27] MEDS: 0.9 % Sodium Chloride Flush 3 ML SYRINGE IVFLUSH ×5 (07:56→20:22)
[2023-02-27] MEDS: levalbuterol HCL 1.25 MG/3 ML VIAL.NEB INHALE ×4 (07:59→19:45)
[2023-02-27] MEDS: Doxycycline Hyclate 100 MG in 0.9 % Sodium Chloride 250 ML 166.67 MG IV ×2 (08:03→20:20)
--- NOTE | 2023-02-27 10:10 | HO.PM.IMPN ---
Subjective Subjective Date of Service: 02/27/23 Interval History: chest pain resolved dyspnea improved coughing no fever no recurrence of VT Review of Systems Review of Systems: Yes all other systems are reviewed and are negative Physical Exam Vital Signs: Vital Signs: Last Vital Signs Temp 97.4 F 02/27/23 07:33 Pulse 104 H 02/27/23 08:02 Resp 20 02/27/23 08:02 BP 137/71 02/27/23 07:33 Pulse Ox 94 02/27/23 07:33 O2 Del Method Nasal Cannula 02/27/23 07:33 O2 Flow Rate 2 02/27/23 07:33 BMI result Body Mass Index 24.2 Gen: in no acute distress HEENT: sclera anicteric, moist mucus membranes Neck: supple Lungs: diminished Heart: regular rate and rhythm, no murmurs Abd: soft, non-tender, non-distended Ext: no edema Skin: warm/well-perfused Neuro: alert and oriented x3, no focal findings Psych: appropriate affect Objective Data Active Medications Acetaminophen (Acetaminophen 325 Mg Tablet) 650 mg PO Q6H PRN PRN Reason: Pain, Mild (Pain Scale 1-3) Last Admin: 02/26/23 20:22 Dose: 650 mg Documented By: LAFLAMC Benzonatate (Benzonatate 100 Mg Capsule) 100 mg PO TID PRN PRN Reason: Cough Last Admin: 02/27/23 07:13 Dose: 100 mg Documented By: LUPILLO Docusate Sodium (Docusate Sodium 100 Mg Capsule) 100 mg PO DAILY PRN PRN Reason: Constipation Duloxetine HCl (Duloxetine Hcl 60 Mg Capsule.) 60 mg PO DAILY [facility] Last Admin: 02/27/23 07:55 Dose: 60 mg Documented By: LUPILLO Enoxaparin Sodium (Enoxaparin Sodium 40 Mg/0.4 Ml Syringe) 40 mg SUBCUT Q24H [facility] Last Admin: 02/26/23 15:04 Dose: 40 mg Documented By: DEWEY Ceftriaxone Sodium 1 gm/ (Sodium Chloride) 50 mls @ 100 mls/hr IV Q24H [facility] Last Infusion: 02/26/23 13:56 Dose: Infused Documented By: DEWEY Doxycycline Hyclate 100 mg/ (Sodium Chloride) 250 mls @ 166.67 mls/hr IV Q12H [facility] Last Admin: 02/27/23 08:03 Dose: 166.67 mls/hr Documented By: LUPILLO Levalbuterol HCl (Levalbuterol Hcl 1.25 Mg/3 Ml Vial.Neb) 1.25 mg INHALE Q2H PRN PRN Reason: shortness of breath or wheeze Levalbuterol HCl (Levalbuterol Hcl 1.25 Mg/3 Ml Vial.Neb) 1.25 mg INHALE RQ4H WHILE AWAKE [facility] Last Admin: 02/27/23 07:59 Dose: 1.25 mg Documented By: LUIS ALBERTO Methylprednisolone Sodium Succinate (Methylprednisolone Sod Succ 40 Mg/Ml Vial) 40 mg IVPUSH Q24H [facility] Last Admin: 02/27/23 07:55 Dose: 40 mg Documented By: LUPILLO Pt Own (Tiotropium- Olodaterol [Stiolto Respimat] 2.5-2.5 Mcg/Actuation M 2 puff INHALE RDAILY [facility] Last Admin: 02/27/23 07:59 Dose: 2 puff Documented By: LUIS ALBERTO Sodium Chloride (0.9 % Sodium Chloride Flush 3 Ml Syringe) 3 ml IVFLUSH QSHIFT [facility] Last Admin: 02/27/23 07:56 Dose: 3 ml Documented By: LUPILLO Sodium Chloride (0.9 % Sodium Chloride Flush 3 Ml Syringe) [facility] Last Admin: 02/27/23 07:56 Dose: 3 ml Documented By: LUPILLO Trazodone HCl (Trazodone Hcl 50 Mg Tablet) 100 mg PO BEDTIME [facility] Last Admin: 02/26/23 20:21 Dose: 100 mg Documented By: SONYAC Labs 02/27/23 06:06 02/27/23 06:06 Labs: Laboratory Results - last 24 hr 02/27/23 06:06 MCV 91.6 MCH 29.9 MCHC 32.6 RDW 13.7 Plt Count 357 MPV 9.0 L Absolute Nucleated RBC 0.000 Nucleated RBC % (auto) 0.0 Anion Gap 15 Estim Creat Clear Calc 92.1 Estimated GFR > 60 Random Glucose 94 Calcium 9.3 Magnesium 2.1 Microbiology Microbiology Results: Microbiology 02/25/23 13:31 Blood Culture - Preliminary Blood - Venous No growth after 24 hours. 02/25/23 13:20 Blood Culture - Preliminary Blood - Venous No growth after 24 hours. Assessment and Plan (1) NSVT (nonsustained ventricular tachycardia): Status: Acute (2) Acute hypoxic respiratory failure: Status: Acute (3) COPD (chronic obstructive pulmonary disease): Status: Acute Assessment and Plan: d2 62yo F with COPD + mood disorder, hx uterine CA s/p hysterectomy presenting with 4 wk of worsening fatigue, dyspnea + cough, found to be hypoxic with PNA sepsis with acute hypoxic resp failure due to COPD exacerbation due to PNA - methylprednisolone 02/26/23- - ceftriaxone 02/25-, changed azithromycin to doxycycline 02/26- - continue nebs- changed to levalbuterol due to tachycardia - wean O2 as tolerated chest pain, atypical - Tn-I x2 negative, no ischemic changes. likely related to coughing. monomorphic NSVT - Cardiology consulted, has not recurred, TTE 02/25/23: Normal left ventricular cavity size. There is normal left ventricular wall thickness. The left ventricular systolic function is normal. The calculated ejection fraction is 55% by biplane method. There is no evidence of regional wall motion abnormalities. Diastolic function is normal for age. - consider outpt f/u with Holter mood disorder - continue duloxetine + trazodone VTE ppx - LMWH dispo - eventual return home In my clinical judgment, the patient requires continued inpatient hospitalization for the following reasons: hypoxia, IV ABX, Total time managing care of this patient today: 35 minutes. Quality Stroke Does the patient have a stroke diagnosis?: No VTE Prior VTE?: No VTE Risk Level:: Medical - moderate - high VTE Device Contraindication: Treatment Not Indicated VTE Drug Contraindication: N/A - Med Ordered
[2023-02-27] MEDS: cefTRIAXone sodium 1 GM in 0.9 % Sodium Chloride 50 ML IV (13:45)
[2023-02-27] MEDS: Enoxaparin Sodium 40 MG/0.4 ML SYRINGE SUBCUT (14:19)
--- NOTE | 2023-02-27 15:07 | PC.RT ---
attempted to wean oxygen to RA, SpO2 down to 83%. placed back on 2LNC
[2023-02-27] MEDS: traZODone HCL 50 MG TABLET 100 MG PO (20:20)
[2023-02-28] VITALS (13 sets, daily range): BP systolic 133–161; BP diastolic 64–81; PULSE 88–112; RESP 16–20; TEMP 36.3–37; O2SAT 86–100
[2023-02-28] MEDS: levalbuterol HCL 1.25 MG/3 ML VIAL.NEB INHALE ×4 (07:23→20:46)
[2023-02-28] MEDS: Acetaminophen 325 MG TABLET 650 MG PO (09:16)
[2023-02-28] MEDS: Doxycycline Monohydrate 100 MG CAPSULE PO ×2 (09:16→21:16)
[2023-02-28] MEDS: DULoxetine HCl 60 MG CAPSULE.DR PO (09:16)
[2023-02-28] MEDS: 0.9 % Sodium Chloride Flush 3 ML SYRINGE IVFLUSH ×5 (09:16→23:03)
[2023-02-28] MEDS: methylPREDNISolone Sod Succ 40 MG/ML VIAL IVPUSH (09:17)
--- NOTE | 2023-02-28 10:14 | MHC.CM.PN ---
Per ROUNDS discussion, Patient is not yet medically cleared for dc (4L, O2 and PT eval needed to assist with disposition). CM will follow.
--- NOTE | 2023-02-28 11:11 | HO.PM.IMPN ---
Subjective Subjective Date of Service: 02/28/23 Interval History: still dyspneic + hypoxic, requiring 2L at rest/4L with exertion no events on telemetry tachycardic Review of Systems Review of Systems: Yes all other systems are reviewed and are negative Physical Exam Vital Signs: Vital Signs: Last Vital Signs Temp 97.8 F 02/28/23 07:30 Pulse 94 02/28/23 09:45 Resp 20 02/28/23 07:30 BP 136/72 02/28/23 09:45 Pulse Ox 100 02/28/23 09:45 O2 Del Method Nasal Cannula 02/28/23 04:00 O2 Flow Rate 2 02/28/23 04:00 BMI result Body Mass Index 24.2 Gen: in no acute distress HEENT: sclera anicteric, moist mucus membranes Neck: supple Lungs: diminished Heart: regular, tachycardic, no murmurs Abd: soft, non-tender, non-distended Ext: no edema Skin: warm/well-perfused Neuro: alert and oriented x3, no focal findings Psych: appropriate affect Objective Data Active Medications Acetaminophen (Acetaminophen 325 Mg Tablet) 650 mg PO Q6H PRN PRN Reason: Pain, Mild (Pain Scale 1-3) Last Admin: 02/28/23 09:16 Dose: 650 mg Documented By: CRISTIANE Benzonatate (Benzonatate 100 Mg Capsule) 100 mg PO TID PRN PRN Reason: Cough Last Admin: 02/27/23 14:19 Dose: 100 mg Documented By: LUPILLO Docusate Sodium (Docusate Sodium 100 Mg Capsule) 100 mg PO DAILY PRN PRN Reason: Constipation Doxycycline Monohydrate (Doxycycline Monohydrate 100 Mg Capsule) 100 mg PO Q12H [facility] Last Admin: 02/28/23 09:16 Dose: 100 mg Documented By: CRISTIANE Duloxetine HCl (Duloxetine Hcl 60 Mg Capsule.Dr) 60 mg PO DAILY [facility] Last Admin: 02/28/23 09:16 Dose: 60 mg Documented By: CRISTIANE Enoxaparin Sodium (Enoxaparin Sodium 40 Mg/0.4 Ml Syringe) 40 mg SUBCUT Q24H [facility] Last Admin: 02/27/23 14:19 Dose: 40 mg Documented By: LUPILLO Ceftriaxone Sodium 1 gm/ (Sodium Chloride) 50 mls @ 100 mls/hr IV Q24H [facility] Last Infusion: 02/27/23 14:15 Dose: Infused Documented By: LUPILLO Levalbuterol HCl (Levalbuterol Hcl 1.25 Mg/3 Ml Vial.Neb) 1.25 mg INHALE Q2H PRN PRN Reason: shortness of breath or wheeze Levalbuterol HCl (Levalbuterol Hcl 1.25 Mg/3 Ml Vial.Neb) 1.25 mg INHALE RQ4H WHILE AWAKE [facility] Last Admin: 02/28/23 07:23 Dose: 1.25 mg Documented By: GUZMAN Methylprednisolone Sodium Succinate (Methylprednisolone Sod Succ 40 Mg/Ml Vial) 40 mg IVPUSH Q24H [facility] Last Admin: 02/28/23 09:17 Dose: 40 mg Documented By: CRISTIANE Pt Own (Tiotropium- Olodaterol [Stiolto Respimat] 2.5-2.5 Mcg/Actuation M 2 puff INHALE RDAILY [facility] Last Admin: 02/28/23 07:26 Dose: 2 puff Documented By: GUZMAN Sodium Chloride (0.9 % Sodium Chloride Flush 3 Ml Syringe) 3 ml IVFLUSH QSHIFT [facility] Last Admin: 02/28/23 09:16 Dose: 3 ml Documented By: CRISTIANE Sodium Chloride (0.9 % Sodium Chloride Flush 3 Ml Syringe) [facility] Admin: 02/28/23 09:17 Dose: 3 ml Documented By: CRISTIANE Trazodone HCl (Trazodone Hcl 50 Mg Tablet) 100 mg PO BEDTIME [facility] Last Admin: 02/27/23 20:20 Dose: 100 mg Documented By: PAYTON Labs 02/27/23 06:06 02/27/23 06:06 Microbiology Microbiology Results: Microbiology 02/25/23 13:31 Blood Culture - Preliminary Blood - Venous No growth after 48 hours. 02/25/23 13:20 Blood Culture - Preliminary Blood - Venous No growth after 48 hours. Assessment and Plan (1) NSVT (nonsustained ventricular tachycardia): Status: Acute (2) Acute hypoxic respiratory failure: Status: Acute (3) COPD (chronic obstructive pulmonary disease): Status: Acute Assessment and Plan: d3 62yo F with COPD + mood disorder, hx uterine CA s/p hysterectomy presenting with 4 wk of worsening fatigue, dyspnea + cough, found to be hypoxic with PNA sepsis with acute hypoxic resp failure due to COPD exacerbation due to PNA - methylprednisolone 02/26/23- - ceftriaxone 02/25-, changed azithromycin to doxycycline 02/26- - continue nebs- changed to levalbuterol due to tachycardia - continue LABA/LAMA Stiolto inhaler - wean O2 as tolerated; may require home O2 chest pain, atypical - Tn-I x2 negative, no ischemic changes. likely related to coughing. monomorphic NSVT on admission in ED - Cardiology consulted, has not recurred, TTE 02/25/23: Normal left ventricular cavity size. There is normal left ventricular wall thickness. The left ventricular systolic function is normal. The calculated ejection fraction is 55% by biplane method. There is no evidence of regional wall motion abnormalities. Diastolic function is normal for age. - consider outpt f/u with Holter mood disorder - continue duloxetine + trazodone VTE ppx - LMWH dispo - eventual return home with VNA/home PT In my clinical judgment, the patient requires continued inpatient hospitalization for the following reasons: hypoxia, IV ABX Total time managing care of this patient today: 35 minutes. Quality Stroke Does the patient have a stroke diagnosis?: No VTE Prior VTE?: No VTE Risk Level:: Medical - moderate - high VTE Device Contraindication: Treatment Not Indicated VTE Drug Contraindication: N/A - Med Ordered
[2023-02-28] MEDS: cefTRIAXone sodium 1 GM in 0.9 % Sodium Chloride 50 ML IV (12:38)
[2023-02-28] MEDS: Enoxaparin Sodium 40 MG/0.4 ML SYRINGE SUBCUT (15:27)
[2023-02-28] MEDS: traZODone HCL 50 MG TABLET 100 MG PO (21:16)
[2023-03-01 04:00] VITALS: BP 137/85; PULSE 86; RESP 19; TEMP 36.3; O2SAT 90
[2023-03-01 07:18] VITALS: BP 134/69; PULSE 82; RESP 18; TEMP 36.6; O2SAT 96
[2023-03-01] MEDS: levalbuterol HCL 1.25 MG/3 ML VIAL.NEB INHALE ×2 (07:31→11:27)
[2023-03-01 07:33] VITALS: PULSE 95; RESP 16; O2SAT 98
[2023-03-01] MEDS: Acetaminophen 325 MG TABLET 650 MG PO (08:50)
[2023-03-01] MEDS: 0.9 % Sodium Chloride Flush 3 ML SYRINGE IVFLUSH ×2 (08:51)
[2023-03-01] MEDS: DULoxetine HCl 60 MG CAPSULE.DR PO (08:51)
[2023-03-01] MEDS: methylPREDNISolone Sod Succ 40 MG/ML VIAL IVPUSH (08:51)
[2023-03-01] MEDS: Doxycycline Monohydrate 100 MG CAPSULE PO (08:51)
[2023-03-01 11:23] VITALS: BP 138/66; PULSE 97; RESP 18; TEMP 36.4; O2SAT 93
[2023-03-01 11:28] VITALS: PULSE 91; RESP 18; O2SAT 94
[2023-03-01] MEDS: cefTRIAXone sodium 1 GM in 0.9 % Sodium Chloride 50 ML IV (11:42)
--- NOTE | 2023-03-01 13:26 | MHC.CM.PN ---
Patient has been medically cleared for dc to home today, self care.
--- NOTE | 2023-03-01 13:30 | PM.DS ---
DS: Providers Provider Date of Service: 03/01/23 Date of admission: 02/25/23 23:52 Date of discharge: 03/01/23 Primary care physician: Román Doe MD Consults: 02/26/23 07:50 Consult to Cardiology Routine Consulting Provider: [facility] Reason for consultation: polymoprhic VT Attending physician on discharge: Kendrick Atkinson Discharging clinician: Kendrick Atkinson DS: Diagnosis Discharge Diagnosis (1) NSVT (nonsustained ventricular tachycardia): Status: Acute (2) Acute hypoxic respiratory failure: Status: Acute (3) COPD (chronic obstructive pulmonary disease): Status: Acute DS: Summary Hospital Course Hospital Course: 62-year-old female with a PMH significant for?COPD not on home O2, anxiety/depression insomnia, and hx of uterine cancer s/p hysterectomy who presents to the ED with?fatigue, shortness of breath, and productive cough x4 weeks. Patient states that symptoms began approximately 1 month ago became significantly worse the past couple days. Patient has had increasing shortness of breath and difficulty breathing with cough occasionally productive of green-colored sputum. Also has experienced chest tightness associated with cough and breathing. Presents today due to worsening symptoms: says she's been pushing and pushing and I just can't push any more . She is a former smoker who quit 45 years ago, drinks socially, and denies any illicit substance use. Denies any significant cardiac history, and follows up regularly with her PCP. In the ED pt had elevated temperature up to 99.9, tachycardia up to 126, tachypnea up to 24, hypertensive up to 168/78, and satting at 84% on RA. Labs were significant for leukocytosis 15.4 and D-dimer mildly elevated at 287, otherwise largely unremarkable. Stable H&H. Electrolytes WNL. Creatinine WNL. Troponin negative. BNP WNL 14. Tested negative for influenza type a and B, COVID, and RSV. CXR showed no evidence for acute disease in the chest. CTA found no evidence for pulmonary embolism, but did show emphysema and airways disease and right lung and probable small bronchopneumonia in the right lower lobe. EKG demonstrated sinus tachycardia of 119 without evidence of significant ST elevations or depressions. Patient did arrive with rhythm strip from EMS of polymorphic wide complex tachycardia of 17 beats. Pt was treated with ceftriaxone and azithromycin. Pt will be admitted to the hospital for treatment further evaluation of acute hypoxic respiratory failure in the setting of community-acquired pneumonia. Hospital course: Patient was admitted to the hospital because of dyspnea and cough: Found to have sepsis with acute hypoxemic respiratory failure due to COPD and pneumonia: Patient was started on nebs, steroids, IV antibiotics, blood cultures sent: With above supportive care patient seems to be improved significantly, blood culture negative, no fever, leukocytosis resolved: Patient will be going home with p.o. antibiotics and steroids. Home oxygen evaluation was done and patient qualified respiratory will arrange home oxygen. Please repeat chest imaging study outpatient in 3-4 weeks to see resolution of pneumonia. plan: Please complete course of antibiotic cefuroxime 500 mg p.o. b.i.d. for 7 days and doxycycline 100 mg p.o. b.i.d. for 7 days. Also complete the course of prednisone 40 mg daily for 4 days. Please repeat chest imaging study outpatient in 3-4 weeks to see resolution of pneumonia. Follow-up with PCP out patiently Above management discussed with the patient in detail length and her they both understand and in agreement with the plan, time spent 50 minute. Time Attestation Discharge coordination time: Greater than 30 minutes Quality: Safe Use of Opioids Does Pt have an Active Cancer Diagnosis on the Problem List?: No Quality: Stroke Does the patient have a stroke diagnosis?: No Physical Exam Vital Signs: Vital Signs: Last Vital Signs Temp 97.6 F 03/01/23 11:23 Pulse 91 03/01/23 11:28 Resp 18 03/01/23 11:28 BP 138/66 03/01/23 11:23 Pulse Ox 93 03/01/23 11:23 O2 Del Method Nasal Cannula 03/01/23 11:23 O2 Flow Rate 2 03/01/23 11:23 BMI result Body Mass Index 24.2 Appearance: Alert.? Oriented X3.? not in distress.? cvs: rrr, [id number] , no murmur res: air entry fair ,no rales or wheezing abd: no rebound or guarding ,nt, bs present. ext pulses present , no cyanosis. neuro: axo3 , nonfocal. DS: Data Data Completed and Pending Labs on day of discharge: Preliminary micro results at discharge 02/25/23 13:31 Blood Culture - Preliminary Blood - Venous No growth after 48 hours. 02/25/23 13:20 Blood Culture - Preliminary Blood - Venous No growth after 48 hours. Imaging Chest x-ray: Radiologist's impression: ITS Impressions Chest X-Ray 02/25/23 09:40 IMPRESSION: Well-inflated lungs. No evidence for acute disease in the chest. Chest CTA 02/25/23 11:26 IMPRESSION: No evidence of pulmonary embolism. Emphysema. Airways disease in the right lung and probable small bronchopneumonia in the right lower lobe VTE: negative Discharge Plan Discharge Anticipated Discharge Date/Time: 03/01/23 13:15 Patient Disposition: Home, Self-Care Discharge Diagnosis: sepsis with acute hypoxic resp failure due to COPD exacerbation due to PNA,monomorphic NSVT Referrals: Román Doe MD [Primary Care Provider] - 1 Week Discharge Medications: New cefuroxime axetil 500 mg tablet 500 mg PO BID Qty: 14 0RF doxycycline hyclate 100 mg capsule 100 mg PO BID Qty: 14 0RF benzonatate 100 mg Capsule 100 mg PO TID PRN (Reason: Cough) Qty: 14 0RF albuterol sulfate [Ventolin HFA] 90 mcg/actuation Hfa Aerosol Inhaler 2 puff inhalation RQ4H PRN (Reason: sob) Qty: 1 0RF prednisone 20 mg tablet 40 mg PO DAILY Qty: 8 0RF Continued trazodone 50 mg tablet 100 - 150 mg PO BEDTIME duloxetine 60 mg capsule,delayed release(DR/EC) 60 mg PO DAILY Stiolto Respimat 2.5-2.5 mcg/actuation mist 2 puff INHALATION DAILY Discharge Orders: Discharge Order (Routine); Ordered 03/01/23 Ordered By: Kendrick Atkinson Diet: Advance to usual diet Activity on Discharge: As tolerated Stand Alone Forms: Patient Portal Discharge page Care Plan Goals: Patient was admitted to the hospital because of dyspnea and cough: Found to have sepsis with acute hypoxemic respiratory failure due to COPD and pneumonia: Patient was started on nebs, steroids, IV antibiotics, blood cultures sent: With above supportive care patient seems to be improved significantly, blood culture negative, no fever, leukocytosis resolved: Patient will be going home with p.o. antibiotics and steroids. Home oxygen evaluation was done and patient qualified respiratory will arrange home oxygen. Please repeat chest imaging study outpatient in 3-4 weeks to see resolution of pneumonia. Health Concerns: As above. Plan of Treatment: As above. Assessment: As above.
[2023-03-02 03:29] LABS: Strep Pneumo Ag urine Not Detected (Not Detected)
[2023-03-03 03:29] LABS: Legionella Ag Urine Not Detected (Not Detected)
== END 2023-03-01 14:37 | disposition home or self-care (01) | DRG 871 ==
LOC: HO.ED 13:52 → HO.EDOVER 23:59 → HO.IMC 02-26 14:54
PROVIDERS: Family Medicine; Student in an Organized Health Care Education/Training Program; Admitting Provider Internal Medicine; Emergency Provider Emergency Medicine; PCP Internal Medicine; Visit Provider Internal Medicine
DX: A41.9 Sepsis, unspecified organism (principal); J18.9 Pneumonia, unspecified organism; J96.01 Acute respiratory failure with hypoxia; J44.1 Chronic obstructive pulmonary disease with (acute) exacerbation; J44.0 Chronic obstructive pulmonary disease with (acute) lower respiratory infection; I47.29 Other ventricular tachycardia; Z99.81 Dependence on supplemental oxygen; Z20.822 Contact with and (suspected) exposure to COVID-19; Z87.891 Personal history of nicotine dependence; Z79.899 Other long term (current) drug therapy
CPT/HCPCS: 0241U; 36415; 71046; 71275; 80048; 83605; 83735; 83880; 84145; 84484; 85025; 85027; 85379; 87040; 87449; 87899; 93005; 93306; 94640; 97162; 99285; J0456; J0696; J1650; J2920; Q9957; Q9967

== ENCOUNTER → 2023-02-25 09:17 | Outpatient (BNV) | payer SELFPAY | PROVIDERS: Emergency Provider Emergency Medicine; PCP Internal Medicine; Visit Provider Internal Medicine | DX: I47.29 Other ventricular tachycardia (principal) | CPT/HCPCS: 93010; 93306 ==

== ENCOUNTER 2023-02-25 23:52 | Outpatient (BNV) | payer SELFPAY | END 2023-02-26 17:09 | PROVIDERS: Admitting Provider Internal Medicine; Emergency Provider Emergency Medicine; PCP Internal Medicine; Visit Provider Internal Medicine | DX: R00.0 Tachycardia, unspecified (principal) | CPT/HCPCS: 93010 ==

== ENCOUNTER → 2023-02-25 23:52 | Outpatient (BNV) | payer SELFPAY | PROVIDERS: Admitting Provider Internal Medicine; Emergency Provider Emergency Medicine; PCP Internal Medicine; Visit Provider Internal Medicine | DX: I47.29 Other ventricular tachycardia (principal); J96.01 Acute respiratory failure with hypoxia; J44.9 Chronic obstructive pulmonary disease, unspecified; J18.9 Pneumonia, unspecified organism | CPT/HCPCS: 99223 ==

== ENCOUNTER → 2023-02-25 23:52 | Outpatient (BNV) | payer OTHER, SELFPAY | PROVIDERS: Admitting Provider Internal Medicine; Emergency Provider Emergency Medicine; PCP Internal Medicine; Visit Provider Family Medicine | DX: I47.29 Other ventricular tachycardia (principal); J96.01 Acute respiratory failure with hypoxia; J44.9 Chronic obstructive pulmonary disease, unspecified | CPT/HCPCS: 99223; 99232; 99239 ==

== ENCOUNTER → 2023-03-09 08:39 | Outpatient (REF) | payer OTHER, SELFPAY ==
--- NOTE | 2023-03-09 08:42 | HM_ITS ---
* Total monitoring time 3 days. * Underlying rhythm is sinus with an average rate of 90/Min. Range 70 to 146/Min. About 18% of the time, rate greater than 100/Min. * Occasional supraventricular ectopy with a burden of 0.4%. * Rare ventricular ectopy. * No significant pauses or AV blocks. * No patient markers or events in diary. MTDD
== END ==
LOC: HO.CARD 08:39
PROVIDERS: PCP Internal Medicine; Visit Provider Internal Medicine
DX: I47.29 Other ventricular tachycardia (principal)
CPT/HCPCS: 93242

== ENCOUNTER → 2023-03-09 08:42 | Outpatient (BNV) | payer OTHER, SELFPAY | PROVIDERS: PCP Internal Medicine; Visit Provider Internal Medicine | DX: I47.9 Paroxysmal tachycardia, unspecified (principal) | CPT/HCPCS: 93244 ==

== ENCOUNTER 2023-03-29 08:12 | Outpatient (AMB) | payer OTHER, SELFPAY ==
[2023-03-29 08:25] VITALS: BP 120/82; PULSE 83; BMI 25.2
--- NOTE | 2023-03-29 08:25 | A.OFFVIS_ITS ---
Intake Vital Signs 03/29/23 08:25 Height 5 ft 6 in Weight 156 lb 1.396 oz BMI 25.2 BP 120/82 Blood Pressure Location Rt brachial Position Sitting Pulse 83 Pulse Source Pulse Oximeter Intake Visit Reasons: fu Cooling System Operator Required: No Household Coordinator: Household Coordinator Present Allergies No Known Allergies Allergy (Verified 03/29/23 08:29) Medication List - Last Reconciled 03/29/23 by Paulina George, [employer] albuterol sulfate 90 mcg/actuation (Ventolin HFA) 2 puffs inhalation RQ4H PRN duloxetine 60 mg PO DAILY tiotropium-olodaterol 2.5-2.5 mcg/actuation (Stiolto Respimat) 2 puffs inhalation DAILY trazodone 100 - 150 mg PO BEDTIME HPI fu HPI Details Paula is a 62-year-old female with past medical history COPD who was recently admitted to [facility] with increased shortness of breath, respiratory failure, pneumonia. While in the emergency room she had a 17 beat wide complex tachycardia. She was evaluated by Dr. Avila, echocardiogram done showing normal EF. She underwent outpatient Holter monitor and now presents for follow-up. Today she reports that her breathing is not quite back to normal yet. She is still requiring oxygen supplement since her hospital discharge. She has some mild shortness of breath with activity. She denies having coughing or wheezing. No chest discomfort at rest or with activity. No heart palpitations, lightheadedness, presyncope, syncope or falls. No PND, orthopnea or edema. She does not have any known history of heart disease. Takes all meds as directed. is present. [facility] Medical History Anxiety and depression Uterine cancer Surgical History Status post hysterectomy Social History Household Members: Spouse Housing: House Patient Tobacco Use Status: Former Tobacco user service: No Review of Systems Const All systems reviewed & are unremarkable except as noted in HPI and below ENT Denies dizziness Card Details: Wearing oxygen with nasal cannula Denies chest pain, Denies chest pain at rest, Denies chest pain with activity, Denies rapid heart rate, Denies pedal edema, Denies edema, Denies leg edema, Denies lightheadedness, Denies palpitations, Reports dyspnea, Reports dyspnea on exertion and Denies orthopnea Resp Denies cough, Reports dyspnea and Reports dyspnea on exertion GI Denies hematochezia and Denies change in stool character Musc Denies abnormal gait, Denies limited range of motion, Denies muscle cramps, Denies muscle weakness, Denies numbness, Denies radiating pain into limb, Denies stiffness and Denies tingling Neuro Denies abnormal gait, Denies dizziness, Denies numbness and Denies tingling Endo Denies palpitations Physical Exam Vital Signs: Last Vital Signs Pulse 83 03/29/23 08:25 BP 120/82 03/29/23 08:25 BMI result Body Mass Index 25.2 Const General: cooperative, healthy appearing, comfortable and no acute distress Orientation/consciousness: patient oriented x3 Neck Neck: Yes normal visual inspection and Yes no JVD Resp Effort & Inspection: normal respiratory effort Auscultation: clear to auscultation bilaterally, no rales, no rhonchi and no wheezes Cardio Jugular venous distension: no JVD Rate: regular rate Rhythm: regular rhythm Heart sounds: S1 normal heart sound present, S2 normal heart sound present, no murmurs and no rubs Skin General skin exam: no rashes or lesions noted Neuro General: patient oriented x3 Extrem General: Yes normal to inspection and No no pedal edema Psych Appearance: grossly normal Mental Status: mental status grossly normal Speech and movement: Normal speech and movement present Assessment & Plan Assessment & Plan (1) NSVT (nonsustained ventricular tachycardia): Code(s): I47.29 - Other ventricular tachycardia Plan: One episode of 17 beat wide complex tachycardia noted while she was in the emergency room for evaluation of increased shortness of breath, respiratory failure, hypoxia. She was it seen by Dr. Avila in consultation. An EKG showed sinus tach, rate 119, normal LA and QTC intervals. Troponin levels no rmal. CTA of the chest showed no PE, no coronary artery calcifications noted. An echocardiogram was done showing EF 55%, no regional wall motion abnormalities, normal valves. She was admitted for 2 days and did not have noted recurrent NSVT. Outpatient Holter monitor done 03/09/2023 for 3 days showed sinus rhythm with average heart rate 90, heart rate range 70 to 146, 18% of the time heart rate greater than 100, rare ventricular ectopy, SVE 0.4% of time. Today she reports that she is improved overall but breathing is not quite back to normal yet. She is still requiring oxygen supplement and hopes to wean off soon. She remains on a work while she is on the oxygen supplement. No cardiac history prior to this event. No history presyncope, syncope. No heart palpitations or anginal symptoms. Will hold off on nuclear stress test at this time. Cardiology follow-up in 4 months, sooner if needed. If breathing is normalized will consider stress test at that time for completeness of her evaluation. (2) Acute hypoxic respiratory failure: Code(s): J96.01 - Acute respiratory failure with hypoxia Plan: As above (3) Hospital discharge follow-up: Code(s): Z09 - Encounter for follow-up examination after completed treatment for conditions other than malignant neoplasm Plan: As above Plan Time spent on chart review, documentation, interview and assess Coding Level of Care Code Est Pt Level 3 (68804) Diagnoses NSVT (nonsustained ventricular tachycardia) I47.29 Acute hypoxic respiratory failure J96.01 Hospital discharge follow-up Z09 Time Spent (min) 24
== END 2023-03-29 09:07 | disposition home or self-care (01) ==
PROVIDERS: PCP Internal Medicine; Visit Provider Nurse Practitioner Family
DX: I47.29 Other ventricular tachycardia (principal); J96.01 Acute respiratory failure with hypoxia; Z09 Encounter for follow-up examination after completed treatment for conditions other than malignant neoplasm
CPT/HCPCS: 99213

== ENCOUNTER → 2023-03-29 08:12 | Outpatient (BNVA) | payer OTHER, SELFPAY | PROVIDERS: PCP Internal Medicine; Visit Provider Nurse Practitioner Family ==

== ENCOUNTER 2023-07-26 08:29 | Outpatient (AMB) | payer OTHER, SELFPAY ==
--- NOTE | 2023-07-26 08:31 | MHC.OFFVIS ---
Vital Signs 07/26/23 08:32 Height 5 ft 6 in Weight 163 lb 9.328 oz BMI 26.4 BP 130/82 Blood Pressure Location Lt brachial Position Sitting Pulse 74 Pulse Source Pulse Oximeter Intake Visit Reasons: 4 mth f/up Appraisal Coordinator Required: No Allergies No Known Allergies Allergy (Verified 07/26/23 08:35) Medication List - Last Reconciled 07/26/23 by Paulina George, MANAGER QUANTITATIVE-C albuterol sulfate 90 mcg/actuation (Ventolin HFA) 2 puffs inhalation RQ4H PRN duloxetine 60 mg PO DAILY fluticasone propionate 50 mcg/actuation 2 intranasal DAILY loratadine (Claritin) 10 mg PO DAILY tiotropium-olodaterol 2.5-2.5 mcg/actuation (Stiolto Respimat) 2 puffs inhalation DAILY trazodone 100 - 150 mg PO BEDTIME HPI HPI 4 mth f/up: Details: Paula is a 63-year-old female with past medical history COPD who was admitted to [facility] February 2023 with increased shortness of breath, respiratory failure, pneumonia. While in the emergency room she had a 17 beat wide complex tachycardia. She was evaluated by Dr. Avila, echocardiogram done showing normal EF. She underwent outpatient Holter monitor without significant findings. She now presents for follow-up. Today she reports that her breathing is gradually improving but not yet back to normal. She wears her oxygen only as needed. She does get short of breath with physical activity. She is following with pulmonology. She denies any coughing or wheezing. She will get a random tightness in her chest that can occur with the shortness of breath. No other chest discomfort at rest or with activity. No heart palpitations, lightheadedness, presyncope, syncope or falls. No PND, orthopnea or edema. She does not have any known history of heart disease. Takes all meds as directed. is present. FOR[facility]LY [facility], [facility] Medical History Anxiety and depression Uterine cancer Surgical History Status post hysterectomy Social History Household Members: Spouse Housing: House Patient Tobacco Use Status: Former Tobacco user service: No Review of Systems Const All systems reviewed & are unremarkable except as noted in HPI and below ENT Denies dizziness Card Details: O2 use as needed Denies chest pain, Denies chest pain at rest, Denies chest pain with activity, Denies rapid heart rate, Denies pedal edema, Denies edema, Denies leg edema, Denies lightheadedness, Denies palpitations, Reports dyspnea, Reports dyspnea on exertion and Denies orthopnea Resp Denies cough, Reports dyspnea and Reports dyspnea on exertion GI Denies hematochezia and Denies change in stool character Musc Denies abnormal gait, Denies limited range of motion, Denies muscle cramps, Denies muscle weakness, Denies numbness, Denies radiating pain into limb, Denies stiffness and Denies tingling Neuro Denies abnormal gait, Denies dizziness, Denies numbness and Denies tingling Endo Denies palpitations Physical Exam Vital Signs: Last Vital Signs Pulse 74 07/26/23 08:32 BP 130/82 07/26/23 08:32 BMI result Body Mass Index 26.4 Const General: cooperative, healthy appearing, comfortable and no acute distress Orientation/consciousness: patient oriented x3 Neck Neck: Yes normal visual inspection and Yes no JVD Resp Effort & Inspection: normal respiratory effort Auscultation: clear to auscultation bilaterally, no rales, no rhonchi and no wheezes Cardio Jugular venous distension: no JVD Rate: regular rate Rhythm: regular rhythm Heart sounds: S1 normal heart sound present, S2 normal heart sound present, no murmurs and no rubs Skin General skin exam: no rashes or lesions noted Neuro General: patient oriented x3 Extrem General: Yes normal to inspection and No no pedal edema Psych Appearance: grossly normal Mental Status: mental status grossly normal Speech and movement: Normal speech and movement present Assessment & Plan Assessment & Plan (1) NSVT (nonsustained ventricular tachycardia): Code(s): I47.29 - Other ventricular tachycardia Category: Medical Plan: One episode of 17 beat wide complex tachycardia noted while she was in the emergency room 02/2023 for evaluation of increased shortness of breath, respiratory failure, hypoxia. She was it seen by Dr. Avila in consultation. An EKG showed sinus tach, rate 119, normal IA and QTC intervals. Troponin levels normal. CTA of the chest showed no PE, no coronary artery calcifications noted. An echocardiogram was done showing EF 55%, no regional wall motion abnormalities, normal valves. She was admitted for 2 days and did not have noted recurrent NSVT. Outpatient Holter monitor done 03/09/2023 for 3 days showed sinus rhythm with average heart rate 90, heart rate range 70 to 146, 18% of the time heart rate greater than 100, rare ventricular ectopy, SVE 0.4% of time. She has done well since her discharge and has had gradual improvement in her breathing. She still wears oxygen supplement as needed. She has not had any heart palpitations, presyncope, syncope, falls. To complete her cardiac workup will order a pharmacological nuclear stress test to evaluate for any ischemia. She does have COPD but typically no wheezing. If she is wheezing that day then her test could be changed to a dobutamine nuclear stress test. She gets short of breath with physical activity so exercise would not be a good option. Plan to call her with test results once available. If normal will plan for cardiology follow-up in 6 months. If her testing is abnormal then cardiology follow-up to be determined. She is agreeable to this plan. (2) Acute hypoxic respiratory failure: Code(s): J96.01 - Acute respiratory failure with hypoxia Category: Medical Plan: As above Plan Time spent on chart review, documentation, interview and assess Orders: Orders NM cardiolite stress test Today I47.29 - Other ventricular tachycardia, J44.9 - Chronic obstructive pulmonary disease, unspecified CA lexiscan stress w yash Today I47.29 - Other ventricular tachycardia, J44.9 - Chronic obstructive pulmonary disease, unspecified Coding Level of Care Code Est Pt Level 3 (52229) Diagnoses NSVT (nonsustained ventricular tachycardia) I47.29 Acute hypoxic respiratory failure J96.01 Time Spent (min) 24
[2023-07-26 08:32] VITALS: BP 130/82; PULSE 74; BMI 26.4
== END 2023-07-26 08:59 | disposition home or self-care (01) ==
PROVIDERS: PCP Internal Medicine; Visit Provider Nurse Practitioner Family
DX: I47.29 Other ventricular tachycardia (principal); J96.01 Acute respiratory failure with hypoxia
CPT/HCPCS: 99213

== ENCOUNTER → 2023-07-26 08:29 | Outpatient (BNVA) | payer OTHER, SELFPAY | PROVIDERS: PCP Internal Medicine; Visit Provider Nurse Practitioner Family ==

== ENCOUNTER → 2023-09-02 07:42 | Outpatient (REF) | payer OTHER, SELFPAY ==
--- NOTE | ~2023-09-02 | NM_ITS ---
Myocardial perfusion study Indication: Ventricular tachycardia to evaluate for myocardial ischemia Technique: The patient was brought in for a Lexiscan perfusion study on 09/02/2023. Patient performed low-level exercise and was injected 0.4 mg of Lexiscan intravenously. Within a minute of injection, 25 mCi of sestamibi was given intravenously. Images were obtained using the SPECT gamma camera interlaced with the gating device. Images were obtained in supine position. Resting perfusion study was performed on 09/08/2023. Patient was administered 25 mCi of sestamibi intravenously at rest. Images were then obtained in supine position. Images obtained with and without CT attenuation. Total DLP 79 mGy-cm. Images were processed with the software and compared side to side in short axis, horizontal long axis and vertical long axis views. Findings: Both stress and rest perfusion study was suboptimal due to intense subdiaphragmatic uptake interfering with myocardial uptake, more prominent on rest perfusion study The stress perfusion study showed non attenuated images show minimal thinning of the distal anterior and apical wall of the LV myocardium. Attenuation corrected images show mild thinning of the apex of the LV myocardium.. The gated study shows normal LV systolic function with calculated LVEF of 56%. LV cavity is normal in size. The gated study shows normal systolic wall thickening and contraction of segments. Resting study shows non attenuated images show minimal thinning and reduced uptake in the distal anterior and apical wall of the LV myocardium. Attenuated corrected images suboptimal with diffuse uptake in multiple segments.. Gating at rest reveals normal systolic wall motion with visually estimated ejection fraction at greater than 60%. The findings are consistent with likely normal myocardial perfusion. NM/NM cardiolite stress test Impression: 1. Myocardial perfusion imaging study shows likely normal myocardial perfusion 2. Gated LVEF is 56% 3. Transient ischemic dilatation not present EKG is nondiagnostic for ischemia
--- NOTE | 2023-09-02 08:01 | CA_ITS ---
Acquisition Time: 2023-09-02 07:58:04 Total Exercise Time: 00:02:00 Test Indications: Abnormal ECG WIDE COMPLEX TACHY Medications: ALBUTEROL DULOXETINE LORATADINE INHALERS Protocol: LEXISCAN Max HR: 121 BPM 76% of Pred: 158 BPM Max BP: 142/078 mmHG Max Work Load: 1.6 METS Pharmacological stress test with Lexiscan injection while walking slowly on the treadmill, with mild SOB, without chest discomfort, with isolated PVC and PAC, with normotensive response to injectin, with nondiagnoisitic EKGs. Aminophylline 75mg IVP given to reverse Lexiscan. Nuclear imaging pending. Test reviewed with Dr. Avila. Referred By: Paulina George Overread By: Christina Haynes
== END ==
LOC: HO.CARD 07:42
PROVIDERS: PCP Internal Medicine; Visit Provider Nurse Practitioner Family
DX: I47.29 Other ventricular tachycardia (principal); J44.9 Chronic obstructive pulmonary disease, unspecified
CPT/HCPCS: 78452; 93017; A9500; J0280; J2785

== ENCOUNTER → 2023-09-02 08:01 | Outpatient (BNV) | payer OTHER, SELFPAY | PROVIDERS: PCP Internal Medicine; Visit Provider Nurse Practitioner | DX: I47.20 Ventricular tachycardia, unspecified (principal) | CPT/HCPCS: 78452; 93016; 93018 ==

== ENCOUNTER → 2024-04-26 14:18 | Outpatient (BNVA) | payer OTHER, SELFPAY | PROVIDERS: PCP Internal Medicine; Visit Provider Nurse Practitioner Family | DX: I47.29 Other ventricular tachycardia (principal); J96.01 Acute respiratory failure with hypoxia | CPT/HCPCS: 93005 ==